=== PATIENT | male | born 1940 | race Caucasian/White ===

== ENCOUNTER → 2017-06-28 | Outpatient (CLI) | payer OTHER, BC ==
[~2017-06-28] MED LIST: AMARYL4 MG PO; ASPIR 8181 MG PO; ASPIR-LOW81 MG PO; ASPIRIN81 M2 PO; AVODART0.5 MG PO; CARBIDOPA/LEVO1 EACH PO; CARBIDOPA/LEVODOPA PO; CELEBREX100 MG PO; CELEXA10 MG PO; CELEXA20 MG PO; GEODON60 MG PO; JANUVIA25 MG PO; LEVOTHYROXINE25 MCG PO; LEVOXYL25 MCG PO; LOPRESSOR25 MG PO; Nitrostat,NitroQuick SL; ONGLYZA2.5 MG PO; PRAVACHOL40 MG PO; Protonix PO; SYNTHROID25 MCG PO; TIROSINT25 MCG PO; XANAX0.25 MG PO
== END | disposition home or self-care (01) ==
LOC: NUC 08:59
DX: G20 Parkinson's disease (principal)
CPT/HCPCS: 78607; A9584